=== PATIENT | female | born 1980 | race African-American/Black ===

== ENCOUNTER 2021-05-04 19:09 | Emergency (ER) | payer OTHER ==
[~2021-05-04] VITALS: Ht 167.6 cm; Wt 88.0 kg
[~2021-05-04 19:09] MED LIST: CIPROFLOXIN HC2.5 M1 OPHTHALMIC; SYNTHROID150 MCG PO
[2021-05-04 19:39] LABS: URINE BILIRUBIN NEGATIVE (Negative); URINE BLOOD NEGATIVE (Negative); URINE CLARITY CLEAR; URINE COLOR YELLOW; URINE GLUCOSE-RANDOM* NEGATIVE (Negative); URINE KETONES NEGATIVE (Negative); URINE LEUKOCYTES-REFLEX NEGATIVE (Negative); URINE NITRITE-REFLEX NEGATIVE (Negative); URINE PROTEIN (DIPSTICK) NEGATIVE (Negative); URINE SPECIFIC GRAVITY 1.015 (1.005-1.035); URINE UROBILINOGEN 0.2 E.U./dl (0.2-1.0)
[2021-05-04] MEDS ORDERED: SUPER THERAVIT1 EACH PO (19:41)
[2021-05-04 19:48] LABS: EOSINOPHILS 0.9 % (0.0-3.0)
[2021-05-04 19:52] LABS: ABSOLUTE NEUTROPHILS 9.7 thou/uL (1.4-8.2); BASOPHILS 0.9 % (0.0-2.0); HEMATOCRIT 39.8 % (37.0-47.0); HEMOGLOBIN 13.2 gm/dL (12.0-15.0); LYMPHOCYTES 16.5 % (24.0-44.0); MCH 31.5 pg (26.0-34.0); MCHC 33.2 g/dL (28.0-37.0); MONOCYTES 6.6 % (1.0-8.0); PLATELET COUNT 224 thou/uL (150-400); POLYS 75.1 % (36.0-66.0); RBC 4.19 mil/uL (4.20-5.00); RDW 12.7 % (10.5-14.5)
[2021-05-04 20:10] LABS: CALCIUM 9.2 mg/dL (8.5-10.1); CREATININE 1.1 mg/dL (0.6-1.0); POTASSIUM 3.8 mmol/L (3.5-5.1)
[2021-05-04 20:15] LABS: ALBUMIN 3.7 g/dL (3.4-5.0); DIRECT BILIRUBIN 0.1 mg/dL (<0.1-0.2); TOTAL BILIRUBIN 0.7 mg/dL (0.2-1.0); TOTAL PROTEIN 7.3 g/dL (6.4-8.2)
[2021-05-04] MEDS ORDERED: HYDROCODON-ACE1 EAC7 PO (21:21)
[2021-05-04] MEDS ORDERED: METRONIDAZOLE500 M4 PO (21:21)
[2021-05-04] MEDS ORDERED: CIPRO500 M1 PO (21:21)
[2021-05-04 21:39] VITALS: BP 141/71
== END 2021-05-04 21:32 | disposition home or self-care (01) ==
LOC: ER 19:09
PROVIDERS: Nurse Practitioner
DX: K57.32 Diverticulitis of large intestine without perforation or abscess without bleeding (principal); N83.202 Unspecified ovarian cyst, left side; Z90.710 Acquired absence of both cervix and uterus; Z85.850 Personal history of malignant neoplasm of thyroid; Z88.1 Allergy status to other antibiotic agents; Z88.2 Allergy status to sulfonamides